=== PATIENT | male | born 1955 | race Two or more races ===

== ENCOUNTER 2018-09-29 05:20 | Day surgery (SDC) | payer OTHER ==
[~2018-09-29 05:20] MED LIST: ALTACE10 MG PO; ALTACE2.5 M1 PO; METFORMIN HCL1000 M1 PO
== END 2018-09-29 11:50 | disposition home or self-care (01) ==
LOC: CIR.AMB 05:20
DX: D17.1 Benign lipomatous neoplasm of skin and subcutaneous tissue of trunk (principal)